=== PATIENT | female | born 1935 | race Asian ===

== ENCOUNTER 2017-09-05 11:23 | Emergency (ER) | payer MEDICARE ==
[2017-09-05 11:28] VITALS: TEMP 97.9; BMI 30.9
--- NOTE | 2017-09-05 11:42 | PDOC ---
History of Present Illness - General Chief Complaint: Back Pain Stated Complaint: BACK PAIN Time Seen by Provider: 09/05/17 11:24 - History of Present Illness Initial Comments: 09/05/17 13:47 81yo female presents ambulatory with her family for eval of intermittent thoracic back pain x 1 month. Seen at [facility] 1 month ago and given "muscle relaxer " that she took initially at home and stopped. Pt states she has seen her PMD but has not told them about the pain. Pt states pain to paraspinal muscle along thoracic spine. No radiation. No paresthesias, weakness, numbness, falls. No trauma. Pt denies cp/sob. No rash. No f/c. No loss of control of bowel or bladder. No pain down arms or legs. No bonilla. No neck pain. No other complaints. Pt ambulates with a cane and ambulated in the ED. Pt has been undergoing accupuncture for the last 2 weeks without relief of pain. No urinary complaints , No other complaints. 09/05/17 13:50 PMHx: dm, htn, chronic back pain, chronic knee pain, ckd allergies: nkda Past History - Past Medical History Allergies/Adverse Reactions: Allergies Allergy/AdvReac Type Severity Reaction Status Date / Time No Known Allergies Allergy Verified 09/05/17 11:24 Home Medications: Ambulatory Orders Cyclobenzaprine HCl [Flexeril 10 mg] 10 mg PO BID PRN #8 tablet 09/05/17 Lidocaine 5% Patch [Lidoderm Patch -] 1 patch TP DAILY #7 patch 09/05/17 Review of Systems - Review of Systems Able to Perform ROS?: Yes Is the patient limited Danish proficient: No Constitutional: No: Chills, Fever HEENTM: No: Nose Congestion, Throat Pain Respiratory: No: Cough, Shortness of Breath, Wheezing Cardiac (ROS): No: Chest Pain, Palpitations ABD/GI: No: Abdominal Distended, Diarrhea, Nausea, Vomiting : No: Burning, Dysuria Musculoskeletal: Yes: Back Pain, Muscle Pain. No: Joint Swelling, Muscle Weakness, Neck Pain Integumentary: No: Bruising, Rash Neurological: No: Headache, Numbness, Paresthesia, Tingling, Tremors, Weakness, Unsteady Gait, Ataxia, Dizziness All Other Systems: Reviewed and Negative *Physical Exam - Vital Signs 09/05/17 13:51 Selected Entries 09/05/17 11:23 Temperature 97.9 F Pulse Rate 72 Respiratory 18 Rate Blood Pressure 129/54 O2 Sat by Pulse 100 Oximetry (%) Weight 81.647 kg - Physical Exam General Appearance: Yes: Nourished, Appropriately Dressed, Other (uncomfortable when moving). No: Apparent Distress HEENT: positive: EOMI, TIGRE, Normal ENT Inspection, Pharynx Normal Neck: positive: Supple. negative: Decreased range of motion, Tender lateral, Tender midline Respiratory/Chest: positive: Lungs Clear, Normal Breath Sounds. negative: Chest Tender, Respiratory Distress, Accessory Muscle Use Cardiovascular: positive: Regular Rhythm, Regular Rate, S1, S2. negative: Edema Vascular Pulses: Dorsalis-Pedis (R): 2+, Doralis-Pedis (L): 2+ Gastrointestinal/Abdominal: positive: Normal Bowel Sounds, Flat, Soft. negative : Tender, Increased Bowel Sounds, Guarding, Rebound, Tenderness Musculoskeletal: positive: Muscle Spasm, Other (no midline step offs or deformities, L paraspinal ttp at mid thoracic spine) Extremity: positive: Normal Capillary Refill, Normal Inspection, Normal Range of Motion. negative: Pedal Edema, Swelling, Calf Tenderness Integumentary: positive: Normal Color, Dry, Warm. negative: Rash Neurologic: positive: administrative appeals tribunal member II-XII NML intact, Fully Oriented, Alert, Normal Mood/ Affect, Normal Response, Motor Strength 5/5. 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 09/05/17 14:21 re-eval: pt has been ambulatory in the ED. Pt with degenerative changes, anterior wedging on lower thoracics on xray. Discussed imaging results with the patient and her family. Discussed that the patient needs to discuss her back pain with her primary and poss see a eviction specialist/orthopedist/neurosurgeon. Discussed she may benefit from PT. Pt also c/o feeling a "grumbling" in her abd. Xray shows mild retained stool. No acute obstruction. Recommended she see GI as outpt as she has never had a colonoscopy and my need further workup. DIscussed in detail with the family and patient how to arrange for follow up for the patient. THat we can give names for follow up, but that they may need to call her insurance company on Thursday to see which providers are in network. Answered all questions. Pt is neuro intact and able to ambulate. Pt stable for d /c to home. All questions answered. *DC/Admit/Observation/Transfer Diagnosis at time of Disposition: Thoracic back pain - Discharge Dispostion Disposition: HOME Condition at time of disposition: Stable Admit: No - Prescriptions Prescriptions: Cyclobenzaprine HCl [Flexeril 10 mg] 10 mg PO BID PRN #8 tablet PRN Reason: Muscle Spasms Lidocaine 5% Patch [Lidoderm Patch -] 1 patch TP DAILY #7 patch - Referrals Referrals: Nidhi Ngo [Non Staff, Medical] - Sebastian Tate MD [Staff Physician] - Lee Collier MD [Staff Physician] - - Patient Instructions Printed Discharge Instructions: DI for Thoracic Back Pain Additional Instructions: Please ask the pharmacist for the topical lidocaine patch. Please take all meds as prescribed. Please see your PMD on thursday. Please return to the ED with any further concerns. - Post Discharge Activity
[2017-09-05] MEDS ORDERED: ACETAMINOPHEN 325 MG TABLET (FP) PO ONE (12:00)
[2017-09-05] MEDS ORDERED: ACETAMINOPHEN 325 MG TABLET (FP) ONE (12:10)
[2017-09-05 12:11] LABS: PH,URINE 5.5 (4.5-8); URINE APPEARANCE Clear; URINE BILIRUBIN Negative (NEGATIVE); URINE BLOOD Negative (NEGATIVE); URINE GLUCOSE (UA) Negative (NEGATIVE); URINE KETONE Negative (NEGATIVE); URINE NITRITE Negative (NEGATIVE); URINE PROTEIN Negative (NEGATIVE); URINE UROBILINOGEN 0.2 (0.2-1.0)
[2017-09-05 12:12] LABS: URINE COLOR YELLOW; URINE LEUK ESTERASE TRACE (NEGATIVE)
[2017-09-05] MEDS: CYCLOBENZAPRINE HCL 5 MG TABLET PO ONE ×2 (12:13→12:18)
[2017-09-05] MEDS ORDERED: CYCLOBENZAPRINE HCL 10 MG TABLET (FP) ONE (12:15)
[2017-09-05 12:27] LABS: URINE WBC 0-3 (0-5)
[2017-09-05] MEDS ORDERED: LIDOCAINE 5% TOPICAL PATCH TP ONE (14:27)
[2017-09-05 14:36] VITALS: BP 141/70; PULSE 73
[2017-09-05] MEDS ORDERED: LIDOCAINE PATCH REMOVAL MC SCH (22:00)
[2017-09-06] MEDS ORDERED: CYCLOBENZAPRINE HCL 5 MG TABLET PO ONE (12:21)
== END 2017-09-05 15:21 | disposition home or self-care (01) ==
LOC: FER 11:23
DX: M54.6 Pain in thoracic spine (principal); E11.9 Type 2 diabetes mellitus without complications; G89.29 Other chronic pain; N18.9 Chronic kidney disease, unspecified
CPT/HCPCS: 72070-TC; 74020-TC; 81003; 81015; 99282-25

== ENCOUNTER 2021-05-17 13:40 | Inpatient (IN) | payer MEDICARE, OTHER ==
[2021-05-17] MEDS ORDERED: dilTIAZem HCL 50 MG/10 ML - 10 ML VIAL IVPUSH ONE (14:02)
[2021-05-17] MEDS ORDERED: dilTIAZem HCL 125 MG/25 ML - 25 ML VIAL ONE (14:06)
[2021-05-17] MEDS ORDERED: dilTIAZem HCL 30 MG TABLET PO ONE (14:30)
[2021-05-17] MEDS ORDERED: dilTIAZem HCL 30 MG TABLET ONE (14:40)
[2021-05-17 15:37] LABS: BASO % 0.9 % (0-2.0); EOS % 1.4 % (0-4.5); HEMATOCRIT 37.4 % (32.4-45.2); HEMOGLOBIN 12.8 GM/dL (10.7-15.3); LYMPH % 27.6 % (8-40); MCH 31.4 pg (25.7-33.7); MCHC 34.1 g/dl (32.0-36.0); MEAN CELL VOLUME 91.9 fl (80-96); MONO % 5.9 % (3.8-10.2); NEUT % 64.2 % (42.8-82.8); PLATELET COUNT 263 10^3/uL (134-434); RBC 4.07 M/mm3 (3.60-5.2); RDW 13.3 % (11.6-15.6); WHITE BLOOD COUNT 9.1 K/mm3 (4.0-10.0)
[2021-05-17] MEDS ORDERED: ACETAMINOPHEN 1000 MG/100 ML VIAL (NON FORMULARY) IVPB ONE (15:44)
[2021-05-17 15:46] LABS: INR 1.26 (0.83-1.09); PROTHROMBIN TIME (PATIENT) 15.4 SEC (9.7-13.0)
[2021-05-17 15:54] LABS: CHLORIDE 108 mmol/L (98-107); SODIUM 137 mmol/L (136-145)
[2021-05-17 15:58] LABS: ANION GAP 7 MMOL/L (8-16); BLOOD UREA NITROGEN 27.6 mg/dL (7-18); CALCIUM 8.7 mg/dL (8.5-10.1); CO2 22 mmol/L (21-32); GLUCOSE,RANDOM 138 mg/dL (74-106)
[2021-05-17 15:59] LABS: ALBUMIN 3.5 g/dl (3.4-5.0)
[2021-05-17] MEDS ORDERED: ACETAMINOPHEN INJECTION 100 ML IVPB ONE ×3 (15:59→17:28)
[2021-05-17 16:01] LABS: CREATININE 1.2 mg/dL (0.55-1.3); SGPT/ALT 29 U/L (13-61)
[2021-05-17 16:02] LABS: SGOT/AST 17 U/L (15-37)
[2021-05-17 16:03] LABS: BILIRUBIN,TOTAL 0.6 mg/dL (0.2-1); TOT PROT 7.6 g/dl (6.4-8.2)
[2021-05-17 16:04] LABS: ALK PHOS 66 U/L (45-117)
[2021-05-17 16:07] LABS: ACTIVATED PTT 33.9 SECONDS (25.2-36.5)
[2021-05-17 16:25] LABS: EPI CELLS 11 /uL (0-25.1); HYALINE CASTS 2 /uL (0-3.1); PH,URINE 6.5 (5.0-8.0); URINE APPEARANCE CLEAR; URINE BACTERIA 101 /uL (0-1359); URINE BILIRUBIN NEGATIVE (NEGATIVE); URINE COLOR YELLOW; URINE GLUCOSE (UA) NEGATIVE (NEGATIVE); URINE KETONE NEGATIVE (NEGATIVE); URINE LEUK ESTERASE 3+ (NEGATIVE); URINE NITRITE NEGATIVE (NEGATIVE); URINE PROTEIN 1+ (NEGATIVE); URINE RBC 12 /uL (0-23.9); URINE UROBILINOGEN 0.2 mg/dL (0.2-1.0); URINE WBC 302 /uL (0-25.8)
[2021-05-17] MEDS ORDERED: CEFTRIAXONE 1,000 MG in DEXTROSE 5%-WATER - 50 ML IVPB ONE (16:25)
[2021-05-17] MEDS ORDERED: CEFTRIAXONE 1 GM/50 ML BAG ONE (16:42)
[2021-05-17] MEDS ORDERED: APIXABAN 5 MG TABLET ONE (22:06)
[2021-05-17] MEDS: APIXABAN 5 MG TABLET PO SCH (22:09)
[2021-05-17] MEDS: RANOLAZINE E.R. 500 MG TABLET (FP) PO SCH (22:09)
[2021-05-17] MEDS: SACUBITRIL/VALSARTAN 24 MG-26 MG TABLET PO SCH (22:09)
[2021-05-18 01:17] VITALS: BMI 31.7
[2021-05-18 08:13] LABS: BASO % 0.6 % (0-2.0); EOS % 1.7 % (0-4.5); HEMATOCRIT 36.8 % (32.4-45.2); HEMOGLOBIN 12.5 GM/dL (10.7-15.3); LYMPH % 36.7 % (8-40); MCH 31.2 pg (25.7-33.7); MCHC 33.9 g/dl (32.0-36.0); MEAN CELL VOLUME 92.1 fl (80-96); MEAN PLT VOLUME 9.7 fl (7.5-11.1); MONO % 6.9 % (3.8-10.2); NEUT % 54.1 % (42.8-82.8); PLATELET COUNT 235 10^3/uL (134-434); RDW 13.2 % (11.6-15.6); WHITE BLOOD COUNT 7.4 K/mm3 (4.0-10.0)
[2021-05-18 08:35] LABS: CALCIUM 8.8 mg/dL (8.5-10.1)
[2021-05-18 08:36] LABS: ALBUMIN 3.2 g/dl (3.4-5.0); BLOOD UREA NITROGEN 26.7 mg/dL (7-18); MAGNESIUM 2.1 mg/dL (1.8-2.4)
[2021-05-18 08:39] LABS: CREATININE 1.3 mg/dL (0.55-1.3)
[2021-05-18 08:40] LABS: BILIRUBIN,TOTAL 0.6 mg/dL (0.2-1)
[2021-05-18] MEDS: APIXABAN 5 MG TABLET PO SCH ×2 (09:13→21:30)
[2021-05-18] MEDS: RANOLAZINE E.R. 500 MG TABLET (FP) PO SCH ×2 (09:14→21:27)
[2021-05-18] MEDS: SACUBITRIL/VALSARTAN 24 MG-26 MG TABLET PO SCH ×2 (09:15→22:32)
[2021-05-18] MEDS ORDERED: traMADol HCL 50 MG TABLET PO PRN (09:45)
[2021-05-18] MEDS ORDERED: ACETAMINOPHEN 325 MG TABLET (FP) PO PRN (09:45)
[2021-05-18] MEDS ORDERED: SACUBITRIL/VALSARTAN 24 MG-26 MG TABLET PO SCH (10:00)
[2021-05-18] MEDS ORDERED: metoPROLOL SUCCINATE 25 MG TAB.SR.24H (FP) PO SCH (10:00)
[2021-05-18] MEDS ORDERED: metoPROLOL SUCCINATE 25 MG TAB.SR.24H (FP) PO ONE (12:00)
[2021-05-18] MEDS: INSULIN SLIDING SCALE (NOVOLOG) 1 VIAL SQ SCH ×3 (12:24→21:28)
[2021-05-18] MEDS ORDERED: PT OWN MED DRAWER 7, Y5N ONE (21:25)
[2021-05-18] MEDS: ROSUVASTATIN CA 20 MG TABLET (FP) PO SCH (21:51)
[2021-05-18] MEDS ORDERED: ROSUVASTATIN CA 40 MG TABLET PO SCH (22:00)
[2021-05-19] MEDS: INSULIN SLIDING SCALE (NOVOLOG) 1 VIAL SQ SCH ×4 (06:03→21:38)
[2021-05-19] MEDS ORDERED: PT OWN MED DRAWER 7, Y5N ONE ×2 (08:57→17:39)
[2021-05-19] MEDS: SACUBITRIL/VALSARTAN 24 MG-26 MG TABLET PO SCH ×2 (09:05→21:28)
[2021-05-19] MEDS: APIXABAN 5 MG TABLET PO SCH ×2 (09:05→21:28)
[2021-05-19] MEDS: RANOLAZINE E.R. 500 MG TABLET (FP) PO SCH ×2 (09:05→21:28)
[2021-05-19] MEDS ORDERED: ALPRAZolam 0.25 MG TABLET PO ONE (12:15)
[2021-05-19] MEDS: ROSUVASTATIN CA 20 MG TABLET (FP) PO SCH (21:28)
[2021-05-20] MEDS: INSULIN SLIDING SCALE (NOVOLOG) 1 VIAL SQ SCH ×3 (06:14→17:46)
[2021-05-20] MEDS ORDERED: sitaGLIPtin PHOSPHATE 50 MG TABLET PO SCH (07:00)
[2021-05-20] MEDS ORDERED: INSULIN (LEVEMIR) 100 UNITS/ML UNITS SQ SCH (07:00)
[2021-05-20] MEDS ORDERED: PT OWN MED DRAWER 7, Y5N ONE ×2 (07:58→12:43)
[2021-05-20] MEDS ORDERED: REGADENOSON 0.4 MG/5 ML PRE-FILLED SYRINGE IVPUSH ONE ×2 (09:30→10:33)
[2021-05-20] MEDS ORDERED: SERTRALINE HCL 25 MG TABLET (FP) PO SCH (10:00)
[2021-05-20] MEDS ORDERED: METOPROLOL TARTRATE 5 MG/5 ML VIAL ONE (11:42)
[2021-05-20] MEDS ORDERED: METOPROLOL TARTRATE 5 MG/5 ML VIAL IVPUSH ONE (11:45)
[2021-05-20] MEDS: APIXABAN 5 MG TABLET PO SCH (12:53)
[2021-05-20] MEDS: RANOLAZINE E.R. 500 MG TABLET (FP) PO SCH (12:53)
[2021-05-20] MEDS: SACUBITRIL/VALSARTAN 24 MG-26 MG TABLET PO SCH (12:53)
[2021-05-20 14:29] VITALS: BP 124/78; PULSE 80; TEMP 98.2
== END 2021-05-20 18:48 | disposition home or self-care (01) | DRG 309 ==
LOC: JER 13:40 → JERBED 16:16 → J4W 23:42
PROVIDERS: ADMIT Family Medicine; ATTEND Family Medicine
DX: I48.92 Unspecified atrial flutter (principal); I50.22 Chronic systolic (congestive) heart failure; N39.0 Urinary tract infection, site not specified; I25.10 Atherosclerotic heart disease of native coronary artery without angina pectoris; E66.9 Obesity, unspecified; Z68.31 Body mass index [BMI] 31.0-31.9, adult; I69.993 Ataxia following unspecified cerebrovascular disease; I11.0 Hypertensive heart disease with heart failure; E11.40 Type 2 diabetes mellitus with diabetic neuropathy, unspecified; B95.1 Streptococcus, group B, as the cause of diseases classified elsewhere; F32.9 Major depressive disorder, single episode, unspecified; M54.6 Pain in thoracic spine
CPT/HCPCS: 36415; 71045-TC-FY; 78452-TC; 80053; 80061; 81003; 82550; 82962; 83036; 83735; 83880; 84439; 84443; 84484; 85025; 85610; 85730; 87077; 87086; 93005; 93010; 93017; 97116-GP; 97161-GP; 99285-25; A9502; C9803; J0131; J2785; U0003; U0005

== ENCOUNTER 2023-04-02 14:44 | Emergency (ER) | payer MEDICARE ==
[2023-04-02 15:08] VITALS: BP 140/50; PULSE 72; RESP 20; TEMP 98; BMI 26.8
[2023-04-02] MEDS ORDERED: ACETAMINOPHEN 325 MG TABLET (FP) PO ONE (15:44)
[2023-04-02] MEDS ORDERED: ACETAMINOPHEN 325 MG TABLET (FP) ONE (15:51)
== END 2023-04-02 19:31 | disposition home or self-care (01) ==
LOC: FER 14:44
DX: S32.020A Wedge compression fracture of second lumbar vertebra, initial encounter for closed fracture (principal); M54.50 Low back pain, unspecified; W18.2XXA Fall in (into) shower or empty bathtub, initial encounter; Y93.89 Activity, other specified; Y92.002 Bathroom of unspecified non-institutional (private) residence as the place of occurrence of the external cause
CPT/HCPCS: 70450-TC; 71045-TC-FY; 72100-TC-FY; 72125-TC; 72170-TC-FY; 99284-25